=== PATIENT | male | born 2000 | race Caucasian/White ===

== ENCOUNTER 2023-11-06 16:01 | Emergency (ER) | payer SELFPAY ==
[~2023-11-06] VITALS: Ht 165.1 cm; Wt 77.3 kg
[2023-11-06 16:02] VITALS: BP 129/76; TEMP 97.1; O2SAT 98
[2023-11-06] MEDS ORDERED: ACE65ERTAB PO (16:09)
== END 2023-11-06 18:28 | disposition left against medical advice (07) ==
LOC: M ED 16:01
DX: Z53.21 Procedure and treatment not carried out due to patient leaving prior to being seen by health care provider (principal)